=== PATIENT | male | born 1955 | race African-American/Black ===

== ENCOUNTER 2019-06-29 09:09 | Emergency (ER) | payer MEDICARE ==
[2019-06-29 10:23] LABS: Bilirubin Negative (Negative); Blood, Urine Moderate (Negative); Glucose, Urine (Dipstick) Negative (Negative); Leukocyte Large (Negative); Nitrite Positive (Negative); Protein, Urine (Dipstick) 30 mg/dL (Neg-Trace); Urobilinogen > or = 8.0 mg/dL (Less than 2)
[2019-06-29 10:34] LABS: Clarity Cloudy (Clear)
[2019-06-29 10:35] LABS: Bacteria/HPF 3+ HPF (None Seen); Squamous Epithelial None Seen HPF (0-3); WBC/HPF Greater than 50 HPF (0-3)
--- NOTE | 2019-06-29 11:02 | ULT ---
TESTICULAR ULTRASOUND: Date: 06/29/19 HISTORY: Testicular pain and swelling on the left. FINDINGS: Real-time imaging of the right and left testicles performed. Right testicle measures approximately 4. 2 cm and left testicle measures 3.6 cm in length. Bilateral hydroceles are demonstrated. The right epididymis appears normal. The left epididymis is enlarged. DOPPLER EVALUATION WITH SPECTRAL ANALYSIS: Normal flow shows to the testicles. Increased flow to the left epididymis. IMPRESSION: 1. Findings compatible with left-sided epididymitis. 2. Bilateral hydroceles. POS: [facility]
== END 2019-06-29 10:53 | disposition home or self-care (01) ==
LOC: SCSER 09:09
DX: N45.1 Epididymitis (principal); I10 Essential (primary) hypertension
CPT/HCPCS: 76870; 81003; 81015; 93976

== ENCOUNTER 2022-08-27 14:40 | Emergency (ER) | payer OTHER, MEDICARE | END 2022-08-27 17:36 | disposition home or self-care (01) | LOC: ERS 14:40 | DX: S09.90XA Unspecified injury of head, initial encounter (principal); E11.9 Type 2 diabetes mellitus without complications; I10 Essential (primary) hypertension; V89.2XXA Person injured in unspecified motor-vehicle accident, traffic, initial encounter | CPT/HCPCS: 70450; 72125 ==

== ENCOUNTER 2024-03-28 13:19 | Inpatient (IN) | payer MEDICARE, OTHER ==
[2024-03-28 14:46] LABS: #Basophils Less than 0.03 10x3/uL (0.0-0.2); #Eosinphils Less than 0.03 10x3/uL (0.0-0.7); %Basophils 0.3 % (0.0-1.0); %Eosinophils 0.3 % (0.0-10.0); %Lymphocytes 21.5 % (21.0-51.0); %Monocytes 7.9 % (0.0-10.0); %Neutrophils 69.9 % (42.0-75.0); Hematocrit 41.5 % (42.0-52.0); Hemoglobin 13.3 g/dL (14.0-18.0); Mean Corpuscular Hemoglobin 26.9 pg (27.0-31.0); Mean Corpuscular Volume 83.8 fL (78.0-98.0); Mean Platelet Volume 12.1 fL (7.4-10.4); Platelet Count 150 10x3/uL (130-400); Red Blood Cell (RBC) Count 4.95 mill/uL (4.70-6.10)
[2024-03-28 14:58] LABS: ALT (SGPT) 13 U/L (8-55); AST (SGOT) 22 U/L (5-34); Albumin 3.7 g/dL (3.4-4.8); Alkaline Phosphatase 57 U/L (40-110); Anion Gap 11 mmol/L (10-20); BUN (Urea Nitrogen) 15 mg/dL (8.4-25.7); Bilirubin, Total 0.6 mg/dL (0.2-1.2); Calc. Creatinine Clearance 0 mL/min (70-130); Calcium 9.1 mg/dL (7.8-10.44); Carbon Dioxide 25 mmol/L (23-31); Chloride 109 mmol/L (98-107); Estimated GFR 95; Globulin 3.1 g/dL (2.4-3.5); Glucose 110 mg/dL (80-115); Lipase 18 U/L (8-78); Potassium 3.2 mmol/L (3.5-5.1); Protein, Total 6.8 g/dL (5.8-8.1); Sodium 142 mmol/L (136-145)
[2024-03-28 15:04] LABS: Troponin I Less than 0.010 ng/mL (< 0.028)
[2024-03-28] MEDS ORDERED: Aspirin Chewable 81 MG TAB ONE (15:26)
[2024-03-28] MEDS ORDERED: HYDROcodone/Acetaminophen 5/325 mg Tablet PO PRN (15:35)
[2024-03-28] MEDS ORDERED: Ondansetron PF 4 MG/2 ML Vial IVP PRN (15:38)
[2024-03-28] MEDS ORDERED: Glucagon 1 MG/ML KIT IM PRN (15:49)
[2024-03-28] MEDS ORDERED: Dextrose 50% Abboject 50 ML SYRINGE SLOW IVP PRN (15:49)
[2024-03-28] MEDS ORDERED: Dextrose 5% in Water 1,000 ML IV PRN (15:49)
[2024-03-28] MEDS ORDERED: HumaLOG 300 UNITS/3 ML VIAL SC PRN (15:49)
[2024-03-28 16:52] LABS: Magnesium 1.9 mg/dL (1.6-2.6)
[2024-03-28 20:26] LABS: Troponin I 0.011 ng/mL (< 0.028)
[2024-03-28] MEDS: NS 0.9% w/ 20 MEQ KCL 1,000 ML/1,000 ML BAG IV SCH (21:44)
[2024-03-28] MEDS: Potassium Chloride 20 MEQ TAB PO SCH (21:44)
[2024-03-28 22:48] VITALS: BMI 31.5
[2024-03-29 00:18] LABS: Troponin I Less than 0.010 ng/mL (< 0.028)
[2024-03-29 07:36] LABS: #Basophils 0.03 10x3/uL (0.0-0.2); %Basophils 0.4 % (0.0-1.0); %Eosinophils 1.5 % (0.0-10.0); %Lymphocytes 33.2 % (21.0-51.0); %Monocytes 8.8 % (0.0-10.0); %Neutrophils 55.8 % (42.0-75.0); Hematocrit 39.6 % (42.0-52.0); Hemoglobin 12.3 g/dL (14.0-18.0); Mean Corpuscular HGB CONC 31.1 g/dL (32.0-36.0); Mean Corpuscular Hemoglobin 26.7 pg (27.0-31.0); Mean Corpuscular Volume 85.9 fL (78.0-98.0); Mean Platelet Volume 12.3 fL (7.4-10.4); Platelet Count 135 10x3/uL (130-400); RBC Distribution Width 14.2 % (11.5-14.5); Red Blood Cell (RBC) Count 4.61 mill/uL (4.70-6.10)
[2024-03-29 07:42] LABS: Anion Gap 11 mmol/L (10-20); BUN (Urea Nitrogen) 14 mg/dL (8.4-25.7); Calc. Creatinine Clearance 123 mL/min (70-130); Calcium 8.7 mg/dL (7.8-10.44); Carbon Dioxide 23 mmol/L (23-31); Cardiac Risk 3.1 (Less than 4.5); Chloride 111 mmol/L (98-107); Cholesterol 150 mg/dl (< 200 Desired); Estimated GFR 95; Glucose 103 mg/dL (80-115); HDL Cholesterol 49 mg/dL (>60 Neg Risk); LDL Cholesterol, Calculated 90 mg/dL; Magnesium 1.8 mg/dL (1.6-2.6); Potassium 3.3 mmol/L (3.5-5.1); Sodium 142 mmol/L (136-145); Triglycerides 56 mg/dL (Less than 150)
[2024-03-29] MEDS: Potassium Chloride 20 MEQ TAB PO SCH (17:31)
[2024-03-29] MEDS: hydrALAZINE 25 MG TAB PO SCH (21:14)
[2024-03-30] MEDS: NIFEdipine XL 30 MG ER.TAB PO SCH (10:17)
[2024-03-30] MEDS: Losartan 25 MG TAB PO SCH (10:17)
[2024-03-30] MEDS: Acetaminophen 325 MG TAB PO PRN (22:21)
[2024-03-31 07:41] VITALS: BP 151/79; TEMP 97.4
[2024-03-31] MEDS: NIFEdipine XL 60 MG ER.TAB PO SCH (09:02)
== END 2024-03-31 10:52 | disposition home or self-care (01) | DRG 310 ==
LOC: ERS 13:19 → ERHOLD 15:18 → 2SE 18:45 → OBSVTOIN 03-29 11:55
PROVIDERS: ADMIT Family Medicine; ATTEND Internal Medicine
DX: R00.1 Bradycardia, unspecified (principal); I45.2 Bifascicular block; E86.0 Dehydration; I10 Essential (primary) hypertension; E11.9 Type 2 diabetes mellitus without complications; E78.5 Hyperlipidemia, unspecified; E87.6 Hypokalemia; Z98.890 Other specified postprocedural states
CPT/HCPCS: 36415; 36416; 71045; 80048; 80053; 80061; 83690; 83735; 83880; 84443; 84484; 85025; 93005; 93306; 94760; G0378; J3480